=== PATIENT | female | born 1960 | race Caucasian/White ===

== ENCOUNTER 2016-12-26 14:58 | Emergency (ER) | payer OTHER ==
[~2016-12-26] VITALS: Ht 162.6 cm; Wt 98.0 kg
[~2016-12-26 14:58] MED LIST: ASPI325T PO; CHOL50006 PO; ENOX40P SQ; LORTA5 PO; MAGN500T4 PO; Z.0.COMMODE-3:1; Z.0.CPM; Z.0.WALKERFRONT
[2016-12-26 14:59] VITALS: BP 132/66; PULSE 62; RESP 16; TEMP 98; O2SAT 98
[2016-12-26] MEDS ORDERED: IMIT25TA PO (15:11)
[2016-12-26] MEDS ORDERED: IBUP800T23 PO (15:11)
--- NOTE | 2016-12-26 15:23 | PD ---
HPI Chief Complaint: Headache Time Seen by Provider: 15:12 Travel History International Travel<30 days: No Contact w/Intl Traveler<30days: No Traveled to known affect area: No History of Present Illness HPI This 56-year-old female is complaining of headache. She says she been having a headache for about 3 days. It is a throbbing headache located in the back of the neck and occipital area of the scalp. She has a history of migraine headaches and generally takes Imitrex with good relief. The headache she is having the last few days is located more posteriorly and lower than her usual headache area and she does not have any numbness or tingling. She says that in the past she has had some trouble with headaches associated with weather change. We have been having several days of rain. PFSH Past Medical History Hx Anticoagulant Therapy: No Arthritis: Yes Anxiety: No Depression: No Heart Rhythm Problems: No Cancer: No Cardiovascular Problems: Yes (AF) High Cholesterol: Yes Chemotherapy: No Chest Pain: No Congestive Heart Failure: Yes Diabetes: No Endocrine: No GERD: Yes Genitourinary: No Headaches: Yes Hepatitis: No Hiatal Hernia: No Immune Disorder: No Musculoskeletal: Yes (KNEE, ARTHRITIS) Neurologic: No Psychiatric: No Reproductive: Yes (HYSTERECTOMY) Respiratory: No Migraines: Yes Radiation Therapy: No Sickle Cell Disease: No Thyroid Disease: No Tetanus Vaccination: Unknown Influenza Vaccination: Yes ?: Not Menopausal: Yes Past Surgical History Abdominal Surgery: Yes (SOCORRO) AICD: No Arteriovenous Shunt: No Body Medical Devices: BL knees Section: Yes (X's 2) Cholecystectomy: Yes Ear Surgery: No Eye Surgery: No Genitourinary Surgery: No Gynecologic Surgery: Yes (HYSTERECTOMY, 2 C SECTIONS) Hysterectomy: Yes Insulin Pump: No Joint Replacement: Yes (BL knees) Oral Surgery: No Pacemaker: No Other Surgery: Yes Social History Alcohol Use: No Tobacco Use: No Substance Use: No Allergies-Medications (Allergen,Severity, Reaction): Coded Allergies: Dilaudid (Verified Adverse Reaction, Severe, Respiratory arrest, 12/26/16) Reported Meds & Prescriptions Reported Meds & Active Scripts Active Reported Ibuprofen 800 Mg Tab 800 Mg PO Q8H PRN Imitrex (Sumatriptan Succinate) 25 Mg Tab 25 Mg PO ONCE PRN If a satisfactory response has not been obtained at 2 hours, a second dose may be administered Review of Systems General / Constitutional: No: Fever, Chills Eyes: Positive: Photophobia, No: Diploplia, Blurred Vision HENT: Positive: Headaches Cardiovascular: No: Chest Pain or Discomfort, Palpitations Respiratory: No: Cough, Shortness of Breath Gastrointestinal: Positive: Nausea, No: Vomiting Genitourinary: No: Frequency, Dysuria Musculoskeletal: No: Myalgias, Arthralgias Skin: No Rash, No Itching Neurologic: Positive: Headache Psychiatric: No: Anxiety Endocrine: No: Heat Intolerance Physical Exam Narrative GENERAL: Well-developed female SKIN: Focused skin assessment warm/dry. HEAD: Atraumatic. Normocephalic. EYES: Pupils equal and round. No scleral icterus. No injection or drainage. ENT: No nasal bleeding or discharge. Mucous membranes pink and moist. NECK: Trachea midline. No JVD. Neck is supple CARDIOVASCULAR: Regular rate and rhythm. No murmur appreciated. RESPIRATORY: No accessory muscle use. Clear to auscultation. Breath sounds equal bilaterally. GASTROINTESTINAL: Abdomen soft, non-tender, nondistended. Hepatic and splenic margins not palpable. MUSCULOSKELETAL: No obvious deformities. No clubbing. No cyanosis. No edema. NEUROLOGICAL: Awake and alert. No obvious cranial nerve deficits. Motor grossly within normal limits. Normal speech. PSYCHIATRIC: Appropriate mood and affect; insight and judgment normal Data Data Last Documented VS Vital Signs Date Time Temp Pulse Resp B/P Pulse Ox O2 Delivery O2 Flow Rate FiO2 12/26/16 14:59 98.0 62 16 132/66 98 Orders Complete Blood Count With Diff (12/26/16 15:18) Basic Metabolic Panel (Bmp) (12/26/16 15:18) Ct Brain W/O Iv Contrast(Rout) (12/26/16 15:18) Sodium Chlor 0.9% 1000 Ml Inj (Ns 1000 M (12/26/16 15:30) Prochlorperazine Inj (Compazine Inj) (12/26/16 15:30) Ketorolac Inj (Toradol Inj) (12/26/16 15:30) Metoclopramide Inj (Reglan Inj) (12/26/16 16:15) Labs Laboratory Tests Test 12/26/16 15:30 White Blood Count 6.9 TH/MM3 Red Blood Count 4.66 MIL/MM3 Hemoglobin 12.6 GM/DL Hematocrit 37.7 % Mean Corpuscular Volume 80.9 FL Mean Corpuscular Hemoglobin 26.9 PG Mean Corpuscular Hemoglobin 33.3 % Concent Red Cell Distribution Width 13.8 % Platelet Count 290 TH/MM3 Mean Platelet Volume 7.0 FL Neutrophils (%) (Auto) 58.8 % Lymphocytes (%) (Auto) 29.7 % Monocytes (%) (Auto) 6.6 % Eosinophils (%) (Auto) 4.4 % Basophils (%) (Auto) 0.5 % Neutrophils # (Auto) 4.1 TH/MM3 Lymphocytes # (Auto) 2.0 TH/MM3 Monocytes # (Auto) 0.5 TH/MM3 Eosinophils # (Auto) 0.3 TH/MM3 Basophils # (Auto) 0.0 TH/MM3 CBC Comment DIFF FINAL Differential Comment Sodium Level 141 MEQ/L Potassium Level 3.5 MEQ/L Chloride Level 103 MEQ/L Carbon Dioxide Level 30.6 MEQ/L Anion Gap 7 MEQ/L Blood Urea Nitrogen 12 MG/DL Creatinine 0.95 MG/DL Estimat Glomerular Filtration 61 ML/MIN Rate Random Glucose 104 MG/DL Calcium Level 8.0 MG/DL [facility] Medical Decision Making Medical Screen Exam Complete: Yes Emergency Medical Condition: Yes Medical Record Reviewed: Yes Differential Diagnosis Differential includes migraine headache, tension headache Narrative Course Patient was given IV fluids and Compazine and Toradol. She reported some improvement. He was given additional Reglan. She is feeling improved. She is stable for discharge Diagnosis Primary Impression: Migraine headache Scripts Ondansetron Odt (Zofran Odt)4 Mg Tab4 Mg SL Q8HR PRN (Nausea/Vomiting) #10 TAB Ref 0 Prov:Ki De Dios MD 12/26/16 Disposition: 01 DISCHARGE HOME Condition: Stable Ki De Dios MD Dec 26, 2016 15:23
[2016-12-26] MEDS ORDERED: SODIUM CHLOR 0.9% 1000 ML INJ 1,000 ML IV ONE (15:30)
[2016-12-26] MEDS ORDERED: KETOROLAC TROMETHAMINE 30 MG/ML (IVP) VIAL IV PUSH ONE (15:30)
[2016-12-26] MEDS ORDERED: PROCHLORPERAZINE INJ 10 MG/2 ML VIAL IV PUSH ONE (15:30)
[2016-12-26 15:38] LABS: AUTOMATED NEUTROPHIL # 4.1 TH/MM3 (1.8-7.7); BASOPHIL % 0.5 % (0.0-2.0); EOSINOPHIL # 0.3 TH/MM3 (0-0.4); EOSINOPHIL % 4.4 % (0.0-4.0); HEMATOCRIT 37.7 % (35.0-46.0); HEMO FLAGS DIFF FINAL; LYMPH % 29.7 % (9.0-44.0); MEAN CELL VOLUME 80.9 FL (80.0-100.0); MEAN CORPUSCULAR HEMOGLOBIN 26.9 PG (27.0-34.0); MEAN CORPUSCULAR HGB CONC 33.3 % (32.0-36.0); MONO % 6.6 % (0.0-8.0); NEUT % 58.8 % (16.0-70.0); PLATELET COUNT 290 TH/MM3 (150-450); RED BLOOD COUNT 4.66 MIL/MM3 (4.00-5.30); RED CELL DISTRIBUTION WIDTH 13.8 % (11.6-17.2); WHITE BLOOD COUNT 6.9 TH/MM3 (4.0-11.0)
[2016-12-26 15:46] LABS: POTASSIUM 3.5 MEQ/L (3.5-5.1)
[2016-12-26 15:49] LABS: BICARBONATE 30.6 MEQ/L (21.0-32.0)
[2016-12-26] MEDS ORDERED: METOCLOPRAMIDE HCL 10 MG/2 ML VIAL IV PUSH ONE (16:15)
--- NOTE | 2016-12-26 16:18 | RADHPO ---
EXAM DATE/TIME: 12/26/2016 15:32 [facility] COMPARISON: No previous studies available for comparison. INDICATIONS : Cephalgia. RADIATION DOSE: 66.57 CTDIvol (mGy) MEDICAL HISTORY : Congestive hearrt failure. Migraines. SURGICAL HISTORY : Cholecystectomy. section.Hysterectomy. ENCOUNTER: Initial ACUITY: 3 days PAIN SCALE: 10/10 LOCATION: cranial TECHNIQUE: Multiple contiguous axial images were obtained of the head. Using automated exposure control and adj ustment of the mA and/or kV according to patient size, radiation dose was kept as low as reasonably a chievable to obtain optimal diagnostic quality images. FINDINGS: CEREBRUM: The ventricles are normal for age. No evidence of midline shift, mass lesion, hemorrhage or acute in farction. No extra-axial fluid collections are seen. POSTERIOR FOSSA: The cerebellum and brainstem are intact. The 4th ventricle is midline. The cerebellopontine angle i s unremarkable. EXTRACRANIAL: The visualized portion of the orbits is intact. SKULL: The calvaria is intact. No evidence of skull fracture. CONCLUSION: 1. No acute intracranial abnormality. Bishop Holley MD on December 26, 2016 at 16:14 Board Certified Radiologist. This report was verified electronically.
[2016-12-26] MEDS ORDERED: ZOFR4TAB3 SL (16:47)
[2016-12-26 16:55] VITALS: BP 126/62; PULSE 52; RESP 14; O2SAT 96
== END 2016-12-26 16:55 | disposition home or self-care (01) ==
LOC: PHED 14:58
DX: G43.909 Migraine, unspecified, not intractable, without status migrainosus (principal); I50.9 Heart failure, unspecified
CPT/HCPCS: 70450; 80048; 85025; 96361; 96374; 96375; 99285; J0780; J1885; J2765; J7030

== ENCOUNTER 2017-08-01 06:01 | Observation (INO) | payer OTHER ==
[~2017-08-01] VITALS: Ht 162.6 cm; Wt 101.5 kg
[2017-08-01] VITALS (7 sets, daily range): BP systolic 117–163; BP diastolic 53–85; PULSE 44–74; RESP 14–18; TEMP 97.2–98.6; O2SAT 95–98
[~2017-08-01 06:01] MED LIST changes: -ASPI325T PO; -CHOL50006 PO; -ENOX40P SQ; +IBUP1TAB7 PO; +IMIT25TA PO; -LORTA5 PO; -MAGN500T4 PO; -Z.0.COMMODE-3:1; -Z.0.CPM; -Z.0.WALKERFRONT; +ZOFR4TAB3 SL
[2017-08-01] MEDS ORDERED: SODIUM CHLORIDE 0.9% FLUSH 10 ML FLUSH IVF PRN (06:15)
[2017-08-01] MEDS: NITROGLYCERIN 0.4 MG SL 25 TABS/BTL SL SCH ×2 (06:20→06:34)
[2017-08-01 06:24] LABS: BASOPHIL % 0.5 % (0.0-2.0); EOSINOPHIL # 0.2 TH/MM3 (0-0.4); EOSINOPHIL % 4.5 % (0.0-4.0); HEMATOCRIT 37.4 % (35.0-46.0); HEMOGLOBIN 12.1 GM/DL (11.6-15.3); LYMPH % 31.5 % (9.0-44.0); LYMPHOCYTE # 1.7 TH/MM3 (1.0-4.8); MEAN CELL VOLUME 80.4 FL (80.0-100.0); MEAN CORPUSCULAR HEMOGLOBIN 26.1 PG (27.0-34.0); MEAN CORPUSCULAR HGB CONC 32.5 % (32.0-36.0); MEAN PLATELET VOLUME 6.7 FL (7.0-11.0); MONO % 10.1 % (0.0-8.0); MONOCYTE # 0.5 TH/MM3 (0-0.9); NEUT % 53.4 % (16.0-70.0); PLATELET COUNT 290 TH/MM3 (150-450); RED BLOOD COUNT 4.65 MIL/MM3 (4.00-5.30); RED CELL DISTRIBUTION WIDTH 13.2 % (11.6-17.2); WHITE BLOOD COUNT 5.4 TH/MM3 (4.0-11.0)
--- NOTE | 2017-08-01 06:28 | RADRPT ---
EXAM DATE/TIME: 08/01/2017 06:15 [facility] COMPARISON: CHEST PA & LAT, April 17, 2016, 11:02. INDICATIONS : Chest pain for 12 hours MEDICAL HISTORY : Congestive heart failure. SURGICAL HISTORY : Cholecystectomy. section.Hysterectomy. ENCOUNTER: Initial ACUITY: 1 day PAIN SCORE: 7/10 LOCATION: Bilateral chest FINDINGS: A single view of the chest demonstrates the lungs to be symmetrically aerated without evidence of mas s, infiltrate or effusion. The heart size is mildly prominent but stable compared to the prior study .. Osseous structures are intact and stable. CONCLUSION: No acute disease. No significant change has occurred. Sloan Machado MD on August 01, 2017 at 6:25 Board Certified Radiologist. This report was verified electronically.
[2017-08-01 06:33] LABS: CHLORIDE 102 MEQ/L (98-107); SODIUM (NA) 137 MEQ/L (136-145)
[2017-08-01 06:36] LABS: ALBUMIN 3.5 GM/DL (3.4-5.0); BICARBONATE 29.4 MEQ/L (21.0-32.0); BLOOD UREA NITROGEN 15 MG/DL (7-18); CALCIUM 8.3 MG/DL (8.5-10.1); GLUCOSE,RANDOM 94 MG/DL (74-106); MAGNESIUM 2.4 MG/DL (1.5-2.5)
[2017-08-01 06:39] LABS: ALT (GPT) 28 U/L (10-53); AST (GOT) 20 U/L (15-37); CREATININE 0.88 MG/DL (0.50-1.00); GLOMERULAR FILTRATION RATE 66 ML/MIN (>89)
[2017-08-01 06:41] LABS: TOTAL BILIRUBIN ADULT 0.4 MG/DL (0.2-1.0)
[2017-08-01 06:42] LABS: ALKALINE PHOSPHATASE 95 U/L (45-117)
[2017-08-01 06:44] LABS: TROPONIN I LESS THAN 0.02 NG/ML (0.02-0.05)
--- NOTE | 2017-08-01 06:54 | PD ---
HPI Chief Complaint: Chest Pain Time Seen by Provider: 06:09 Travel History International Travel<30 days: No Contact w/Intl Traveler<30days: No Traveled to known affect area: No History of Present Illness HPI Patient is a 56-year-old female presents emergency Department with chest pain which started an hour or 2 prior to presentation. Patient states feels tightness in her chest radiation up into her neck, and with some shortness of breath mild nausea without vomiting as well as some dizziness. Patient states that she thought all the warning signs with her that she might be having heart attacks which decided coming to the emergency department to be seen. She has a history of hyperlipidemia, no hypertension or hypercholesterol is a nonsmoker. Does have a small family history of heart disease. No heart disease in herself. She states she had the symptoms years ago and was ultimately diagnosed gallbladder gallbladder taken out. She had a stress test at that time as well as a consultation with a farm laborer and was told her heart was healthy. Again this history was several years ago. She states the discomfort is moderate, in the middle of her chest, radiation to her chin, associated signs symptoms as above. PFSH Past Medical History Hx Anticoagulant Therapy: No Arthritis: Yes Anxiety: No Depression: No Heart Rhythm Problems: No Cancer: No Cardiovascular Problems: Yes (AF) High Cholesterol: Yes Chemotherapy: No Chest Pain: No Congestive Heart Failure: Yes Diabetes: No Diminished Hearing: No Endocrine: No Gastrointestinal Disorders: No GERD: Yes Genitourinary: No Headaches: Yes Hepatitis: No Hiatal Hernia: No Heparin Induced Thrombocytopen: No Hypertension: No Immune Disorder: No Implanted Vascular Access Dvce: Yes Medical other: No Musculoskeletal: Yes (KNEE, ARTHRITIS) Neurologic: No Psychiatric: No Reproductive: Yes (HYSTERECTOMY) Respiratory: No Migraines: Yes Radiation Therapy: No Sickle Cell Disease: No Thyroid Disease: No Tetanus Vaccination: Unknown Influenza Vaccination: Yes ?: Not Menopausal: Yes Past Surgical History Abdominal Surgery: Yes (SOCORRO) AICD: No Arteriovenous Shunt: No Body Medical Devices: BL knees Section: Yes (X's 2) Cholecystectomy: Yes Ear Surgery: No Eye Surgery: No Genitourinary Surgery: No Gynecologic Surgery: Yes (HYSTERECTOMY, 2 C SECTIONS) Hysterectomy: Yes Insulin Pump: No Joint Replacement: Yes (BL knees) Oral Surgery: No Pacemaker: No Other Surgery: Yes Social History Alcohol Use: No Tobacco Use: No Substance Use: No Allergies-Medications (Allergen,Severity, Reaction): Coded Allergies: hydromorphone (Unverified Adverse Reaction, Severe, Respiratory arrest, ) Reported Meds & Prescriptions Reported Meds & Active Scripts Active Zofran Odt (Ondansetron Odt) 4 Mg Tab 4 Mg SL Q8HR PRN Reported Ibuprofen 800 Mg Tab 800 Mg PO Q8H PRN Imitrex (Sumatriptan Succinate) 25 Mg Tab 25 Mg PO ONCE PRN If a satisfactory response has not been obtained at 2 hours, a second dose may be administered Review of Systems Except as stated in HPI: all other systems reviewed are Neg Physical Exam Narrative GENERAL: Well-developed, well-nourished, obese in no obvious distress. SKIN: Focused skin assessment warm/dry. HEAD: Atraumatic. Normocephalic. EYES: Pupils equal and round. No scleral icterus. No injection or drainage. ENT: No nasal bleeding or discharge. Mucous membranes pink and moist. NECK: Trachea midline. No JVD. CARDIOVASCULAR: Regular rate and rhythm. No murmur appreciated. 2+ but equal pulses in all 4 extremity's. RESPIRATORY: No accessory muscle use. Clear to auscultation. Breath sounds equal bilaterally. GASTROINTESTINAL: Abdomen soft, non-tender, nondistended. Hepatic and splenic margins not palpable. MUSCULOSKELETAL: No obvious deformities. No clubbing. No cyanosis. No edema. NEUROLOGICAL: Awake and alert. No obvious cranial nerve deficits. Motor grossly within normal limits. Normal speech. PSYCHIATRIC: Appropriate mood and affect; insight and judgment normal. Data Data Last Documented VS Vital Signs Date Time Temp Pulse Resp B/P (MAP) Pulse Ox O2 Delivery O2 Flow Rate FiO2 08/01/17 06:41 51 18 135/64 (87) 98 Room Air 08/01/17 06:05 98.4 Orders Orders Electrocardiogram (08/01/17 06:13) Complete Blood Count With Diff (08/01/17 06:13) Comprehensive Metabolic Panel (08/01/17 06:13) Magnesium (Mg) (08/01/17 06:13) Prothrombin Time / Inr (Pt) (08/01/17 06:13) Act Partial Throm Time (Ptt) (08/01/17 06:13) Troponin I (08/01/17 06:13) Chest, Single Ap (08/01/17 06:13) Ecg Monitoring (08/01/17 06:13) Iv Access Insert/Monitor (08/01/17 06:13) Oximetry (08/01/17 06:13) Oxygen Administration (08/01/17 06:13) Sodium Chloride 0.9% Flush (Ns Flush) (08/01/17 06:15) Nitroglycerin Sl (Nitrostat Sl) (08/01/17 06:15) Admit Order (Ed Use Only) (08/01/17 ) Labs Laboratory Tests Test 08/01/17 06:10 White Blood Count 5.4 TH/MM3 Red Blood Count 4.65 MIL/MM3 Hemoglobin 12.1 GM/DL Hematocrit 37.4 % Mean Corpuscular Volume 80.4 FL Mean Corpuscular Hemoglobin 26.1 PG Mean Corpuscular Hemoglobin Concent 32.5 % Red Cell Distribution Width 13.2 % Platelet Count 290 TH/MM3 Mean Platelet Volume 6.7 FL Neutrophils (%) (Auto) 53.4 % Lymphocytes (%) (Auto) 31.5 % Monocytes (%) (Auto) 10.1 % Eosinophils (%) (Auto) 4.5 % Basophils (%) (Auto) 0.5 % Neutrophils # (Auto) 3.0 TH/MM3 Lymphocytes # (Auto) 1.7 TH/MM3 Monocytes # (Auto) 0.5 TH/MM3 Eosinophils # (Auto) 0.2 TH/MM3 Basophils # (Auto) 0.0 TH/MM3 CBC Comment DIFF FINAL Differential Comment Prothrombin Time 10.0 SEC Prothromb Time International Ratio 1.0 RATIO Activated Partial Thromboplast Time 27.9 SEC Blood Urea Nitrogen 15 MG/DL Creatinine 0.88 MG/DL Random Glucose 94 MG/DL Total Protein 7.0 GM/DL Albumin 3.5 GM/DL Calcium Level 8.3 MG/DL Magnesium Level 2.4 MG/DL Alkaline Phosphatase 95 U/L Aspartate Amino Transf (AST/SGOT) 20 U/L Alanine Aminotransferase (ALT/SGPT) 28 U/L Total Bilirubin 0.4 MG/DL Sodium Level 137 MEQ/L Potassium Level 3.8 MEQ/L Chloride Level 102 MEQ/L Carbon Dioxide Level 29.4 MEQ/L Anion Gap 6 MEQ/L Estimat Glomerular Filtration Rate 66 ML/MIN Troponin I LESS THAN 0.02 NG/ML [facility] Medical Decision Making Medical Screen Exam Complete: Yes Emergency Medical Condition: Yes Differential Diagnosis ACS, AMI, pneumonia, PE unlikely. Narrative Course Patient roomed in emergency department, her chest discomfort was completely relieved by nitroglycerin. Aspirin was held as the patient states she took 325 this morning. Initial workup including EKG and troponin CBC and CMP negative. Chest x-ray negative. Last 24 hours Impressions Chest X-Ray 08/01/17 0613 Signed Impressions: Service Date/Time: Tuesday, August 01, 2017 06:15 - CONCLUSION: No acute disease. No significant change has occurred. Sloan Machado MD Discussed with the patient initial workup negative but certainly cannot exclude coronary artery disease and recommended that she be admitted to the chest pain center and she is agreeable. Discussed with Dr. Knox Diagnosis Primary Impression: Chest pain Qualified Codes: R07.9 - Chest pain, unspecified Admitting Information Admitting Physician Requests: Observation Condition: Stable Jason Nicole MD Aug 01, 2017 06:54
[2017-08-01] MEDS ORDERED: SODIUM CHLORIDE 0.9% FLUSH 10 ML FLUSH IV FLUSH PRN (08:00)
[2017-08-01] MEDS ORDERED: ACETAMINOPHEN 500 MG CPLT PO PRN (08:00)
[2017-08-01] MEDS ORDERED: ONDANSETRON HCL 4 MG/2 ML VIAL IV PUSH PRN (08:00)
[2017-08-01] MEDS ORDERED: SODIUM CHLORIDE 0.9% FLUSH 10 ML FLUSH IV FLUSH SCH (09:00)
--- NOTE | 2017-08-01 09:00 | HHI.HP ---
[facility] Service [facility] Albert Shah M.D. Admission Diagnosis Chest Pain Diagnoses: (1) Chest pain Diagnosis: Principal Chief Complaint: Chest pain Travel History International Travel<30 Days: No Contact w/Intl Traveler <30 Da: No Traveled to Known Affected Are: No History of Present Illness This is a pleasant 56-year-old female patient with a known medical history of hyperlipidemia and arthritis of presented to the ED with complaints of chest pain. Patient states that around eighteen hundred last evening while she was baking a cake she developed a sudden midsternal chest pain that radiated up her neck and her bilateral shoulders. Patient states that the pain was associated with some dizziness and nausea, also with associated diaphoresis and some breath. Patient denies any vomiting. Patient rated the pain a seven out of ten on pain scale, does state that a few years ago she had a similar episode which ended up being her gallbladder and underwent cholecystectomy. At that time patient also underwent a stress test which was reportedly negative. Patient denies any personal history of CAD or cardiovascular disease. She denies any history of smoking. Review of Systems Constitutional: DENIES: Fever, Chills Eyes: DENIES: Blurred vision, Diplopia Respiratory: COMPLAINS OF: Shortness of breath, DENIES: Cough Cardiovascular: COMPLAINS OF: Chest pain Gastrointestinal: COMPLAINS OF: Nausea, DENIES: Abdominal pain, Black stools, Bloody stools, Constipation, Diarrhea, Vomiting Musculoskeletal: DENIES: Joint pain Hematologic/lymphatic: DENIES: Bruising Neurologic: DENIES: Abnormal gait Psychiatric: COMPLAINS OF: Anxiety Except as stated in HPI: all other systems reviewed are Neg Past Family Social History Past Medical History Arthritis Hypercholesterolemia GERD Past Surgical History Cholecystectomy Hysterectomy 2 Bilateral knee replacement Reported Medications Active Zofran Odt (Ondansetron Odt) 4 Mg Tab 4 Mg SL Q8HR PRN Reported Magnesium (Magnesium Oxide) 400 Mg Tablet 500 Mg PO DAILY Zolpidem (Zolpidem Tartrate) 10 Mg Tab 10 Mg PO HS PRN Pantoprazole (Pantoprazole Sodium) 40 Mg Tab 40 Mg PO DAILY Lovastatin 10 Mg Tab 10 Mg PO DAILY Ibuprofen 800 Mg Tab 800 Mg PO Q8H PRN Imitrex (Sumatriptan Succinate) 25 Mg Tab 25 Mg PO ONCE PRN If a satisfactory response has not been obtained at 2 hours, a second dose may be administered Allergies: Coded Allergies: hydromorphone (Unverified Adverse Reaction, Severe, Respiratory arrest, ) Active Ordered Medications Current Medications Medications (Trade) Dose Ordered Sig/Carmen Route Start Time Stop Time Status Last Admin (NS Flush) 2 ml UNSCH PRN IV FLUSH 08/01/17 08:00 (NS Flush) 2 ml BID IV FLUSH 08/01/17 09:00 (Tylenol) 500 mg Q4H PRN PO 08/01/17 08:00 (Zofran Inj) 4 mg Q6H PRN IV PUSH 08/01/17 08:00 Family History Maternal medical history significant for lung cancer. Denies any significant cardiovascular disease. Social History She denies any tobacco use. Denies any alcohol use. Denies illicit drug use. Physical Exam Vital Signs Vital Signs Date Time Temp Pulse Resp B/P (MAP) Pulse Ox O2 Delivery O2 Flow Rate FiO2 08/01/17 07:34 Room Air 08/01/17 07:34 97.7 44 16 117/53 (74) 98 Room Air 08/01/17 06:41 51 18 135/64 (87) 98 Room Air 08/01/17 06:10 53 18 98 Room Air 08/01/17 06:10 18 98 Room Air 08/01/17 06:10 98 Room Air 08/01/17 06:05 98.4 53 18 163/79 (107) 98 Physical Exam GENERAL: This is a well-nourished, well-developed patient, in no apparent distress. SKIN: No rashes, ecchymoses or lesions. Warm and dry. HEAD: Atraumatic. Normocephalic. No temporal or scalp tenderness. EYES: Pupils equal round and reactive. Extraocular motions intact. No scleral icterus. No injection or drainage. ENT: Nose without bleeding, purulent drainage or septal hematoma. Throat without erythema, tonsillar hypertrophy or exudate. Uvula midline. Airway patent. NECK: Trachea midline. No JVD. Supple. CARDIOVASCULAR: Regular rate and rhythm without murmurs, gallops, or rubs. No reproducible chest pain RESPIRATORY: Clear to auscultation. Breath sounds equal bilaterally. No wheezes , rales, or rhonchi. GASTROINTESTINAL: Abdomen soft, non-tender, nondistended. no guarding. MUSCULOSKELETAL: Extremities without clubbing, cyanosis, or edema. No joint tenderness, effusion, or edema noted. NEUROLOGICAL: Awake and alert. Cranial nerves II through XII intact. Motor and sensory grossly within normal limits. Five out of 5 muscle strength in all muscle groups. Normal speech. Laboratory Laboratory Tests Test 08/01/17 06:10 White Blood Count 5.4 Red Blood Count 4.65 Hemoglobin 12.1 Hematocrit 37.4 Mean Corpuscular Volume 80.4 Mean Corpuscular Hemoglobin 26.1 Mean Corpuscular Hemoglobin Concent 32.5 Red Cell Distribution Width 13.2 Platelet Count 290 Mean Platelet Volume 6.7 Neutrophils (%) (Auto) 53.4 Lymphocytes (%) (Auto) 31.5 Monocytes (%) (Auto) 10.1 Eosinophils (%) (Auto) 4.5 Basophils (%) (Auto) 0.5 Neutrophils # (Auto) 3.0 Lymphocytes # (Auto) 1.7 Monocytes # (Auto) 0.5 Eosinophils # (Auto) 0.2 Basophils # (Auto) 0.0 CBC Comment DIFF FINAL Differential Comment Prothrombin Time 10.0 Prothromb Time International Ratio 1.0 Activated Partial Thromboplast Time 27.9 Blood Urea Nitrogen 15 Creatinine 0.88 Random Glucose 94 Total Protein 7.0 Albumin 3.5 Calcium Level 8.3 Magnesium Level 2.4 Alkaline Phosphatase 95 Aspartate Amino Transf (AST/SGOT) 20 Alanine Aminotransferase (ALT/SGPT) 28 Total Bilirubin 0.4 Sodium Level 137 Potassium Level 3.8 Chloride Level 102 Carbon Dioxide Level 29.4 Anion Gap 6 Estimat Glomerular Filtration Rate 66 Troponin I LESS THAN 0.02 Result Diagram: 08/01/17 0610 08/01/17609 Imaging Last Impressions Chest X-Ray 08/01/17612 Signed Impressions: Service Date/Time: Tuesday, August 01, 2017 06:15 - CONCLUSION: No acute disease. No significant change has occurred. Sloan Machado MD Septic Shock Reassessment Septic shock perfusion: reassessment completed Caprini VTE Risk Assessment Caprini VTE Risk Assessment: No/Low Risk (score <= 1) Caprini Risk Assessment Model Point Value = 1 Point Value = 2 Point Value = 3 Point Value = 5 Age 41-60 Minor surgery BMI > 25 kg/m2 Swollen legs Varicose veins or History of unexplained or recurrent spontaneous Oral contraceptives or hormone replacement Sepsis (< 1 month) Serious lung disease, including pneumonia (< 1 month) Abnormal pulmonary function Acute myocardial infarction Congestive heart failure (< 1 month) History of inflammatory bowel disease Medical patient at bed rest Age 61-74 Arthroscopic surgery Major open surgery (> 45 min) Laparoscopic surgery (> 45 min) Malignancy Confined to bed (> 72 hours) Immobilizing plaster cast Central venous access Age >= 75 History of VTE Family history of VTE Factor V Leiden Prothrombin [id number] Lupus anticoagulant Anticardiolipin antibodies Elevated serum homocysteine Heparin-induced thrombocytopenia Other congenital or acquired thrombophilia Stroke (< 1 month) Elective arthroplasty Hip, pelvis, or leg fracture Acute spinal cord injury (< 1 month) Prophylaxis Regimen Total Risk Factor Score Risk Level Prophylaxis Regimen 0-1 Low Early ambulation 2 Moderate Order ONE of the following: *Sequential Compression Device (SCD) *Heparin 5000 units SQ BID 3-4 Higher Order ONE of the following medications: *Heparin 5000 units SQ TID *Enoxaparin/Lovenox 40 mg SQ daily (WT < 150 kg, CrCl > 30 mL/min) *Enoxaparin/Lovenox 30 mg SQ daily (WT < 150 kg, CrCl > 10-29 mL/min) *Enoxaparin/Lovenox 30 mg SQ BID (WT < 150 kg, CrCl > 30 mL/min) AND/OR *Sequential Compression Device (SCD) 5 or more Highest Order ONE of the following medications: *Heparin 5000 units SQ TID (Preferred with Epidurals) *Enoxaparin/Lovenox 40 mg SQ daily (WT < 150 kg, CrCl > 30 mL/min) *Enoxaparin/Lovenox 30 mg SQ daily (WT < 150 kg, CrCl > 10-29 mL/min) *Enoxaparin/Lovenox 30 mg SQ BID (WT < 150 kg, CrCl > 30 mL/min) AND *Sequential Compression Device (SCD) Assessment and Plan Problem List: (1) Chest pain ICD Code: R07.9 - Chest pain, unspecified Status: Acute Plan: Patient has been admitted to the chest pain center for observation. Serial EKGs and serial troponins have been ordered for ruling out ACS purposes. Serial troponins 2 are flat. EKG reviewed showing sinus bradycardia with controlled heart rate, no ST changes to indicate ischemia. At this time the chest pain has resolved. Patient did come in with some complaints of dizziness. It appears on the EKG and cardiac telemetry that she is sinus bradycardic. Will continue to monitor. Will order orthostatic BPs as well. Follow. Continue cardiac telemetry, monitor for any present arrhythmias. CBC and BMP reviewed, essentially unremarkable. Chest x-ray clear, showing no acute disease. Patient will undergo a cardiac nuclear stress test, to further rule out any ischemia. Further hospitalization and treatment plan will depend on nuclear imaging. Follow. Patient underwent a cardiac stress test and results reviewed showing no ischemia or reversibility. Results reviewed with patient and . Will discharge home tonight. With recommendations for follow-up with PCP. The static BPs were negative. Patient is stable at this time and agreeable to plan. Problem Qualifiers (1) Chest pain: Qualified Codes: R07.9 - Chest pain, unspecified Destiny Blunt Aug 01, 2017 09:00
[2017-08-01] MEDS ORDERED: PANT40TA3 PO (10:32)
[2017-08-01] MEDS ORDERED: MAGN400T24 PO (10:32)
[2017-08-01] MEDS ORDERED: LOVA10TA PO (10:32)
[2017-08-01] MEDS ORDERED: ZOLP10TA3 PO (10:32)
[2017-08-01 10:45] LABS: TROPONIN I LESS THAN 0.02 NG/ML (0.02-0.05)
[2017-08-01 12:25] LABS: TROPONIN I LESS THAN 0.02 NG/ML (0.02-0.05)
[2017-08-01] MEDS ORDERED: MAGNESIUM OXIDE 400 MG TAB PO SCH (13:00)
[2017-08-01] MEDS ORDERED: REGADENOSON INJ 0.4 MG/5 ML SYR IV ONE (14:21)
--- NOTE | 2017-08-01 14:25 | EKG ---
Date Performed: 08/01/2017 Time Performed: 09:50:41 PTAGE: 56 years EKG: SINUS BRADYCARDIA MODERATE INTRAVENTRICULAR CONDUCTION DELAY Prolonged QTc interval BORDERL INE ECG PREVIOUS TRACING : 08/01/2017 06.07 DOCTOR: Spencer Castañeda Interpretating Date/Time 08/01/2017 14:25:35
--- NOTE | 2017-08-01 14:25 | EKG ---
Date Performed: 08/01/2017 Time Performed: 06:07:36 PTAGE: 56 years EKG: SINUS BRADYCARDIA WITH SINUS ARRHYTHMIA MODERATE INTRAVENTRICULAR CONDUCTION DELAY Prolonge d QTc interval BORDERLINE ECG PREVIOUS TRACING : 04/17/2016 10.21 DOCTOR: Spencer Castañeda Interpretating Date/Time 08/01/2017 14:25:21
--- NOTE | 2017-08-01 15:24 | RADRPT ---
EXAM DATE/TIME: 08/01/2017 13:49 [place] COMPARISON: No previous studies available for comparison. INDICATIONS : Mid chest pain radiating to bilateral shoulders with diaphoresis for one day. Angina. DOSE: 35.0 mCi Tc99m Myoview at stress. 11.0 mCi Tc99m Myoview at rest. 0.4 mg Lexiscan STRESS SYMPTOMS: Shortness of breath. EJECTION FRACTION: 57% MEDICAL HISTORY : Gastroesophageal reflux disease. SURGICAL HISTORY : Hysterectomy. section. Cholecystectomy. ENCOUNTER: Initial ACUITY: 1 day PAIN SCALE: 7/10 LOCATION: Midsternal chest TECHNIQUE: The patient underwent pharmacologic stress with infusion of prescribed dose. Continuous ECG tracing was monitored during stress. Gated SPECT imaging was performed after stress and conventional SPECT i maging was performed at rest. The examination was performed on a SPECT/CT scanner, both attenuation and non-corrected datasets were reviewed. FINDINGS: DISTRIBUTION: The maximum perfused segment at stress is in the posterior basal wall. PERFUSION STUDY: There is mildly diminished relative perfusion to the cardiac apex without evidence of redistribution. GATED STUDY: There is intact wall motion and thickening without hypokinetic or dyskinetic segments. CONCLUSION: Mild severity fixed apical perfusion abnormality. No evidence of ischemia. RISK CATEGORY: Low (<1% Annual Mortality Rate) Eric Ferrer MD on August 01, 2017 at 15:16 Board Certified Radiologist. This report was verified electronically.
--- NOTE | 2017-08-01 15:54 | HHI.DCPOC ---
Discharge Care Plan Diagnosis: (1) Chest pain Goals to Promote Your Health * To prevent worsening of your condition and complications * To maintain your health at the optimal level Directions to Meet Your Goals Take your medications as prescribed Follow your dietary instruction Follow activity as directed Keep your appointments as scheduled Take your immunizations and boosters as scheduled If your symptoms worsen call your PCP, if no PCP go to Urgent Care Center or Emergency Room Smoking is Dangerous to Your Health. Avoid second hand smoke Call the 24-hour hour crisis hotline for domestic abuse at Destiny Blunt Aug 01, 2017 15:54
[2017-08-02] MEDS ORDERED: PRAVASTATIN SOD 10 MG TAB PO SCH (09:00)
[2017-08-02] MEDS ORDERED: PANTOPRAZOLE SOD 40 MG DELAYED RELEASE TAB PO SCH (09:00)
--- NOTE | 2017-08-02 14:12 | TR ---
Date Performed: 08/01/2017 Time Performed: 14:30:31 DOCTOR: Rickie Smith DRUG LIST: CLINICAL HISTORY: CHEST PAIN REASON FOR TEST: Chest pain REASON FOR ENDING: OBSERVATION: CONCLUSION: Lexiscan stress test was performed under standard four minute protocol. Radionuclide was injected one minute prior to ending the test. No electrocardiographic abormalities were present to suggest ischemia. Nuclear imaging and interpretation are pending. COMMENTS:
--- NOTE | 2017-08-02 15:06 | EKG ---
Date Performed: 08/01/2017 Time Performed: 11:50:38 PTAGE: 56 years EKG: SINUS BRADYCARDIA WITH FIRST DEGREE AV BLOCK MODERATE INTRAVENTRICULAR CONDUCTION DELAY ABN ORMAL ECG PREVIOUS TRACING : 08/01/2017 09.50 Since previous tracing, no significant change noted DOCTOR: Camilo Arenas Interpretating Date/Time 08/02/2017 15:04:24
== END 2017-08-01 16:56 | disposition home or self-care (01) ==
LOC: PHED 06:01 → PHEDA 07:22 → PH3A 09:09
PROVIDERS: ADMIT Hospitalist; ATTEND Hospitalist
DX: R07.9 Chest pain, unspecified (principal); E78.5 Hyperlipidemia, unspecified; K21.9 Gastro-esophageal reflux disease without esophagitis; R94.31 Abnormal electrocardiogram [ECG] [EKG]; Z90.710 Acquired absence of both cervix and uterus; Z96.653 Presence of artificial knee joint, bilateral
CPT/HCPCS: 71045; 78452; 80053; 82550; 83735; 84484; 85025; 85610; 85730; 93005; 93017; 99285; A9502; G0378; J2785